=== PATIENT | male | born 1995 | race Caucasian/White ===

== ENCOUNTER → 2016-06-21 | Outpatient (CLI) | payer OTHER ==
--- NOTE | 2016-06-21 15:43 | MAMMOGRAPHY REPORT ---
MALE BILATERAL DIGITAL DIAGNOSTIC MAMMOGRAM TOMOSYNTHESIS WITH CAD AND TARGETED BILATERAL ULTRASOUND : 06/21/2016 CLINICAL HISTORY: 20-year-old male with a one-month history of a palpable lump in the subareolar rig ht breast. The patient reports it is tender with palpation. No reported lump in the left breast. No skin erythema or nipple discharge. No family history of breast cancer. TECHNIQUE: Bilateral breast tomosynthesis in addition to standard 2D mammography was performed. Curr ent study was also evaluated with a Computer Aided Detection (CAD) system. COMPARISON: No prior exams were available for comparison. BREAST COMPOSITION: The breast parenchyma is nearly entirely fat. FINDINGS: A triangular palpable marker was placed overlying the skin of the 6:00 right breast, denot ing the area of palpable lump pointed out by the patient. There is breast tissue development in the retroareolar right breast and to a lesser degree on the left. No suspicious spiculated or irregula r mass, architectural distortion or cluster of suspicious microcalcifications is seen. Targeted ultrasound was performed in the periareolar and retroareolar aspect of each breast with par ticular attention to the right breast in the area of tender lump pointed out by the patient. There is a hypoechoic mount of breast tissue in the retroareolar and periareolar right breast. No underly ing solid or cystic suspicious mass is seen. Only trace breast tissue is seen in the left retroareo lar breast. No solid or cystic suspicious mass. IMPRESSION: ACR BI-RADS CATEGORY 2: BENIGN, TARGETED ULTRASOUND ACR BI-RADS CATEGORY 2: BENIGN There is right and minimal left-sided gynecomastia, likely explaining the patient's tender lump in t he right retroareolar breast. There is no mammographic or targeted sonographic evidence of malignan cy. Clinical follow-up is recommended as to possible underlying cause. These results and recommendations were discussed with the patient at the time of the exam. Approximately 10% of breast cancers are not detected with mammography. A negative mammographic repor t should not delay biopsy if a clinically suggestive mass is present. Shila Tadeo M.D. ay/:06/21/2016 12:47:22 Cash Application Clerk: Kelsey Hightower, [facility] letter sent: Normal 1/2 BI-RADS Code: ACR BI-RADS Category 2: Benign Ultrasound BI-RADS: ACR BI-RADS Category 2: Benign
== END | disposition home or self-care (01) ==
LOC: C.MAMM 09:12
PROVIDERS: ATTEND Family Medicine
DX: N62 Hypertrophy of breast (principal)